=== PATIENT | male | born 1985 | race Two or more races ===

== ENCOUNTER 2016-08-08 07:29 | Emergency (ER) | payer SELFPAY ==
[~2016-08-08] VITALS: Ht 172.7 cm; Wt 100.0 kg
[2016-08-08 07:45] VITALS: BP 147/86
== END 2016-08-08 11:44 | disposition home or self-care (01) ==
LOC: ED 11:30
DX: S90.31XA Contusion of right foot, initial encounter (principal); X58.XXXA Exposure to other specified factors, initial encounter; Y93.89 Activity, other specified; Y99.8 Other external cause status; Y92.410 Unspecified street and highway as the place of occurrence of the external cause
CPT/HCPCS: 82962

== ENCOUNTER 2020-01-26 16:48 | Emergency (ER) | payer MEDICAID ==
[~2020-01-26] VITALS: Ht 172.7 cm; Wt 79.1 kg
[2020-01-26] MEDS ORDERED: DIPH,PERTUSS(ACELL),TET VAC/PF 0.5 ML IM-VACC ONE (18:30)
[2020-01-26 18:59] LABS: BASOPHILS % (AUTO) 0 % (0-1); EOSINOPHILS % (AUTO) 1 % (1-7); LYMPHOCYTES % (AUTO) 17 % (22-44); MEAN CORPUSCULAR HEMOGLOBIN 31.4 pg (27.5-34.5); MEAN PLATELET VOLUME 8.2 fL (7.4-10.4); MONOCYTES % (AUTO) 10 % (2-9); NEUTROPHILS % (AUTO) 71 % (42-75); PLATELET COUNT 318 x10^3/uL (130-400); RED BLOOD COUNT 5.02 x10^6/uL (4.38-5.82); RED CELL DISTRIBUTION WIDTH 12.9 % (9.4-14.8)
[2020-01-26 19:05] LABS: MD NO
[2020-01-26 19:15] LABS: ANION GAP 4 mmol/L (5-15); CALCIUM 8.9 mg/dL (8.5-10.1); CHLORIDE 104 mmol/L (98-107); CREATININE 1.05 mg/dL (0.7-1.3)
[2020-01-26 19:33] VITALS: BP 151/89
== END 2020-01-26 20:27 ==
LOC: ED 17:30
DX: L03.114 Cellulitis of left upper limb (principal)
CPT/HCPCS: 36415; 80048; 85025; 99284